=== PATIENT | female | born 1990 | race Two or more races ===

== ENCOUNTER 2023-04-01 13:01 | Emergency (ER) | payer MEDICAID, OTHER ==
[~2023-04-01] VITALS: Ht 154.9 cm; Wt 75.0 kg
[2023-04-01 13:08] VITALS: BP 140/82; PULSE 78; RESP 20; O2SAT 100
[2023-04-01] MEDS ORDERED: KETOROLAC TROMETH 60MG/2ML VIAL IM ONE (14:15)
== END 2023-04-01 15:12 | disposition home or self-care (01) ==
LOC: ER 13:01 → EDBD 13:01 → ER 15:12
DX: S29.012A Strain of muscle and tendon of back wall of thorax, initial encounter (principal); S76.012A Strain of muscle, fascia and tendon of left hip, initial encounter; S56.912A Strain of unspecified muscles, fascia and tendons at forearm level, left arm, initial encounter; V43.52XA Car driver injured in collision with other type car in traffic accident, initial encounter; Y93.89 Activity, other specified; Y92.488 Other paved roadways as the place of occurrence of the external cause; Y99.8 Other external cause status
CPT/HCPCS: 72070; 73090; 73502; 96372; 99284; J1885